=== PATIENT | female | born 1970 | race Caucasian/White ===

== ENCOUNTER 2018-07-29 19:46 | Inpatient (IN) ==
[2018-07-29] MEDS ORDERED: NS 1,000 ML IV ONE ×2 (20:08→21:09)
--- NOTE | 2018-07-29 20:23 | Diag Imaging Result Doc PS360 ---
EXAM: CHEST-1 VIEW 07/29/2018 HISTORY: sepsis screen TECHNIQUE: AP portable at 2014 COMMENT: There is platelike opacity in the left lower lobe and lingula. The heart size and pulmonary vascularity are within normal limits. There are no previous studies available for comparison. IMPRESSION: Atelectasis versus pneumonia in the left lower lobe and lingula. Electronically signed by Rachid Faye 07/29/2018 8:21 PM
[2018-07-29] MEDS ORDERED: CIPRO 400 MG/D5W 400 MG/200 ML IVPB IV ONE (20:28)
[2018-07-29 20:41] LABS: BASO# 0.05 X1000 (0.0-0.2); BASO% 0.6 % (0.0-0.8); EOS# 0.24 X1000 (0.0-0.7); EOS% 2.7 % (0.0-10.0); HEMATOCRIT 40.3 % (37.0-47.0); HEMOGLOBIN 13.2 g/dL (12.0-16.0); IMM GRAN# 0.05 X1000 (0.0-0.04); IMM GRAN% 0.6 % (0.0-0.5); LYMPH# 2.51 X1000 (1.2-3.4); LYMPH% 27.8 % (20.5-51.1); MCH 30.7 PG (27-31); MCHC 32.8 g/dL (33-37); MCV 93.7 FL (81-99); MONO# 0.96 X1000 (0.11-0.59); MONO% 10.6 % (1.7-9.3); MPV 10.8 FL (7.4-10.4); NEUT# 5.23 X1000 (1.4-6.5); NEUT% 57.7 % (42.2-75.2); PLT 207 X1000 (130-400); RDW 13.3 % (11.5-14.5); WBC 9.04 X1000 (4.8-10.8)
[2018-07-29 20:51] LABS: INR 0.81; PROTIME 11.8 Seconds (11.0-16.0)
[2018-07-29 20:52] LABS: PTT 27.7 Seconds (22.3-41.8)
[2018-07-29 21:09] LABS: AGAP 10; ALB/GLOB RATIO 1.3; ALBUMIN 4.1 g/dL (3.5-5.0); ALKALINE PHOSPHATASE 74 U/L (32-104); BUN 7 mg/dL (8-22); CALCIUM 8.7 mg/dL (8.8-10.2); CHLORIDE 97 mmol/L (98-107); COSMO 278; CREATININE 0.8 mg/dL (0.5-0.9); ESTIMATED GFR > 60; GLUCOSE 284 mg/dL (70-104); GOT 30 U/L (10-30); GPT 35 U/L (10-36); POTASSIUM 3.8 mmol/L (3.5-5.1); SODIUM 135 mmol/L (136-145); TCO2 28 mmol/L (25-35); TOTAL BILIRUBIN 0.24 mg/dL (0.20-1.00); TOTAL PROTEIN 7.3 g/dL (6.3-8.3)
[2018-07-29 21:18] LABS: URINE SOURCE CLEAN CATCH
[2018-07-29 21:36] LABS: CK PROFILE 788 U/L (24-173)
[2018-07-29] MEDS ORDERED: TORADOL IV ONE (21:46)
[2018-07-29 21:58] LABS: BILIRUBIN URINE NEGATIVE (NEGATIVE); BLOOD URINE NEGATIVE (NEGATIVE); COLOR YELLOW; GLUCOSE URINE >1000 mg/dL (NEGATIVE); KETONE URINE NEGATIVE (NEGATIVE); LEUKOCYTES URINE TRACE (NEGATIVE); NITRITE URINE NEGATIVE (NEGATIVE); PROTEIN URINE NEGATIVE (NEGATIVE); SP GRAVITY URINE 1.013; TURBIDITY URINE CLEAR (CLEAR); UR EPITHELIAL CELLS <10 /HPF (<10); URINE BACTERIA NEGATIVE /HPF; URINE RBC <10 /HPF (<10); URINE WBC <10 /HPF (<10); UROBILINOGEN URINE NORMAL (NORMAL)
[2018-07-29 22:01] LABS: CK INDEX 1.3 (0.0-2.5); CK-MB 10.21 ng/mL (0.0-5.0)
[2018-07-29] MEDS ORDERED: OFIRMEV 1000 MG/ISOTONIC SOLN 1,000 MG/100 ML BOTTLE IV ONE (22:05)
[2018-07-29] MEDS ORDERED: OFIRMEV 1000 MG/ISOTONIC SOLN 1,000 MG/100 ML BOTTLE ONE (22:10)
[2018-07-29] MEDS ORDERED: DUONEB (A & A) INH PRN (22:41)
[2018-07-29] MEDS ORDERED: NORCO-5 PO PRN (23:10)
--- NOTE | 2018-07-29 23:31 | PROVIDER DOCUMENTATION ---
This chart was entered by Gill Pierce Scribe, acting as scribe for Florina Goddard MD. HPI-Abdominal Pain/GI Problem - General Chief Complaint: Possible Sepsis-D Stated Complaint: STOMACH SWOLLEN/PAIN Time Seen by Provider: 07/29/18 20:04 Allergies/Adverse Reactions: Patient Allergies Allergy/AdvReac Type Severity Reaction Status Date / Time codeine Allergy Unknown Verified 07/29/18 21:05 niacin Allergy Unknown Verified 07/29/18 21:05 Sulfa (Sulfonamide Allergy Unknown Verified 07/29/18 21:05 Antibiotics) tramadol [From Ultram] Allergy Unknown Verified 07/29/18 21:05 Home Medications: Home Medication List Medication Instructions Recorded Confirmed Last Taken Type Gabapentin 1 cap PO TID 07/29/18 07/29/18 Unknown History Gabapentin 2 cap PO BID 07/29/18 07/29/18 Unknown History Metaxalone 1 tab PO TID 07/29/18 07/29/18 Unknown History Metoprolol Tartrate 1 tab PO BID 07/29/18 07/29/18 Unknown History Quetiapine [Seroquel] 50 mg PO QHS 07/29/18 07/29/18 Unknown History Trazodone HCl 300 mg PO QHS 07/29/18 07/29/18 Unknown History Venlafaxine HCl [Effexor Xr] 150 mg PO DAILY 07/29/18 07/29/18 Unknown History - History of Present Illness-ABD Nature of Presenting Problems: Pt is 48/F presenting to ED w/ diarrhea for the last 3 months, sts that it has gotten worse in the past 2 weeks w/ occasional black stool and bloody diarrhea x2. She sts that she has had some cramping as well w/ pain at 8/10. Inability to control her bowels. Some nausea but no vomiting. Has been febrile. Abdominal Pain Onset Location: reports: RLQ, LLQ Pain Radiation: reports: no radiation Quality of Pain: reports: cramping Severity in ED: reports: moderate Onset/Duration: reports: other (2 weeks) Timing: reports: still present Activities at Onset: reports: none Exposure to sick contacts?: No Modifying Factors: improves with: nothing Associated Symptoms: reports: diarrhea, fever/chills, nausea. denies: shortness of breath, vomiting Dark Stools Present?: reports: black, bright red blood Rectal Pain: reports: none Review of Systems - Adult - REVIEW OF SYSTEMS - ADULT Constitutional: reports: no symptoms reported. denies: chills, fever Eyes: reports: no symptoms reported Ears, Nose, Mouth & Throat: reports: no symptoms reported Cardiovascular: reports: no symptoms reported. denies: chest pain Respiratory: reports: no symptoms reported Gastrointestinal: reports: abdominal pain, diarrhea, nausea. denies: vomiting Genitourinary: reports: no symptoms reported Musculoskeletal: reports: no symptoms reported Integumentary: reports: no symptoms reported Neurological: reports: no symptoms reported. denies: dizziness/vertigo, headache/migraines Past History - Adult - PAST MEDICAL HISTORY-ADULT Review of Records: reports: Old Records Reviewed, Nursing Assessment Review, Medications Reviewed, Social history reviewed & non-contributory. Major Childhood Illnesses: reports: denies history - SOCIAL HISTORY Smoking: cigarettes Substance Use: none presently/history of abuse Alcohol Use Frequency: never Physical Exam-General - PHYSICAL EXAM-ADULT Initial Vital Signs Reviewed: Yes - CONSTITUTIONAL General Appearance: appears well, alert, mild distress - EYES Eyes: PERRL/EOMI, pink conjunctivae - HEAD, EARS, NOSE, MOUTH & THROAT HENMT: normocephalic/atraumatic, moist mucous membranes, normal ENT inspection, TMs normal, pharynx normal - NECK Neck: non-tender, full range of motion, supple, normal inspection - RESPIRATORY Respiratory: chest non-tender, lungs clear, normal breath sounds - CARDIOVASCULAR Cardiovascular: tachycardia (121) - GASTROINTESTINAL (ABDOMEN) Abdominal Exam: normal bowel sounds, soft, tenderness (LLQ and RLQ tenderness upon palpation). negative: guarding, rigid, rebound - MUSCULOSKELETAL Back Exam: normal inspection, no CVA tenderness, no vertebral tenderness Extremity: normal range of motion, non-tender, normal gait, normal inspection - SKIN Integumentary: normal color, warm/dry - NEUROLOGIC Neurologic: grossly normal - PSYCHIATRIC Psych/Mental Status: normal thought content, normal thought process, oriented x 3 Progress - PLAN OF CARE/RESULTS Progress/Plan/Lab Results: Vital Signs - 8 hr 07/29/18 19:52 07/29/18 21:02 07/29/18 21:09 Temperature 100.9 F H Pulse Rate 142 H Respiratory Rate 18 Blood Pressure 154/77 148/84 146/84 O2 Sat by Pulse Oximetry 97 07/29/18 21:55 Temperature 100.2 F H Pulse Rate 101 H Respiratory Rate 20 Blood Pressure 122/91 O2 Sat by Pulse Oximetry 97 07/29/18 20:30 Stool Occult Blood (KALANI) - Final Stool Laboratory Results - last 24 hr 07/29/18 07/29/18 07/29/18 20:25 20:25 20:25 WBC 9.04 RBC 4.30 Hgb 13.2 Hct 40.3 MCV 93.7 MCH 30.7 MCHC 32.8 L RDW Std Deviation 13.3 Plt Count 207 MPV 10.8 H Immature Gran % (Auto) 0.6 H Neut % (Auto) 57.7 Lymph % (Auto) 27.8 Cooke % (Auto) 10.6 H Eos % (Auto) 2.7 Baso % (Auto) 0.6 Immature Gran # (Auto) 0.05 H Neut # (Auto) 5.23 Lymph # (Auto) 2.51 Cooke # (Auto) 0.96 H Eos # (Auto) 0.24 Baso # (Auto) 0.05 PT 11.8 INR 0.81 PTT (Actin FS) 27.7 Sodium 135 L Potassium 3.8 Chloride 97 L Carbon Dioxide 28 Anion Gap 10 BUN 7 L Creatinine 0.8 Estimated GFR/1.73 m2 > 60 BUN/Creatinine Ratio 9 Glucose 284 H Calculated Osmolality 278 Calcium 8.7 L Total Bilirubin 0.24 AST 30 ALT 35 Alkaline Phosphatase 74 Creatine Kinase 788 H Creatine Kinase Index 1.3 CK-MB (CK-2) 10.21 H Troponin T Total Protein 7.3 Albumin 4.1 Globulin 3.2 Albumin/Globulin Ratio 1.3 Plasma Lactate Urine Source Urine Color Urine Turbidity Urine pH Ur Specific [place] Urine Protein Ur Glucose (Stick) Ur Ketones (Stick) Urine Blood Urine Nitrite Urine Bilirubin Urobilinogen Dipstick Urine Leukocytes Urine WBC (Auto) Urine RBC (Auto) U Epithel Cells (Auto) Urine Bacteria (Auto) Blood Type Antibody Screen 07/29/18 07/29/18 07/29/18 20:25 20:25 20:25 WBC RBC Hgb Hct MCV MCH MCHC RDW Std Deviation Plt Count MPV Immature Gran % (Auto) Neut % (Auto) Lymph % (Auto) [place] % (Auto) Eos % (Auto) Baso % (Auto) Immature Gran # (Auto) Neut # (Auto) Lymph # (Auto) [place] # (Auto) Eos # (Auto) Baso # (Auto) PT INR PTT (Actin FS) Sodium Potassium Chloride Carbon Dioxide Anion Gap BUN Creatinine Estimated GFR/1.73 m2 BUN/Creatinine Ratio Glucose Calculated Osmolality Calcium Total Bilirubin AST ALT Alkaline Phosphatase Creatine Kinase Creatine Kinase Index CK-MB (CK-2) Troponin T 0.037 Total Protein Albumin Globulin Albumin/Globulin Ratio Plasma Lactate 1.7 Urine Source Urine Color Urine Turbidity Urine pH Ur Specific [place] Urine Protein Ur Glucose (Stick) Ur Ketones (Stick) Urine Blood Urine Nitrite Urine Bilirubin Urobilinogen Dipstick Urine Leukocytes Urine WBC (Auto) Urine RBC (Auto) U Epithel Cells (Auto) Urine Bacteria (Auto) Blood Type A POSITIVE Antibody Screen NEGATIVE 07/29/18 20:30 WBC RBC Hgb Hct MCV MCH MCHC RDW Std Deviation Plt Count MPV Immature Gran % (Auto) Neut % (Auto) Lymph % (Auto) [place] % (Auto) Eos % (Auto) Baso % (Auto) Immature Gran # (Auto) Neut # (Auto) Lymph # (Auto) [place] # (Auto) Eos # (Auto) Baso # (Auto) PT INR PTT (Actin FS) Sodium Potassium Chloride Carbon Dioxide Anion Gap BUN Creatinine Estimated GFR/1.73 m2 BUN/Creatinine Ratio Glucose Calculated Osmolality Calcium Total Bilirubin AST ALT Alkaline Phosphatase Creatine Kinase Creatine Kinase Index CK-MB (CK-2) Troponin T Total Protein Albumin Globulin Albumin/Globulin Ratio Plasma Lactate Urine Source CLEAN CATCH Urine Color YELLOW Urine Turbidity CLEAR Urine pH 7.0 Ur Specific [place] 1.013 Urine Protein NEGATIVE Ur Glucose (Stick) >1000 A Ur Ketones (Stick) NEGATIVE Urine Blood NEGATIVE Urine Nitrite NEGATIVE Urine Bilirubin NEGATIVE Urobilinogen Dipstick NORMAL Urine Leukocytes TRACE A Urine WBC (Auto) <10 Urine RBC (Auto) <10 U Epithel Cells (Auto) <10 Urine Bacteria (Auto) NEGATIVE Blood Type Antibody Screen Orders Category Date Time Status Cardiac Monitoring DIRECTED Care 07/29/18 19:58 Active IV Insertion ORDERED Care 07/29/18 19:58 Completed Notify MD of + Sepsis Screen NOW Care 07/29/18 19:58 Active Notify Physician As Ordered Care 07/29/18 19:58 Active CHEST-1 VIEW [RAD] Stat Exams 07/29/18 19:58 Completed BLOOD CULTURE [BLDCUL] Stat Lab 07/29/18 20:55 Results CBC WITH DIFF [HEME] Stat Lab 07/29/18 20:25 Completed CK PROFILE [SP CHEM] Stat Lab 07/29/18 20:25 Completed COMPREHENSIVE METABOLIC PANEL [CHEM] Stat Lab 07/29/18 20:25 Completed LACTATE, PLASMA [CHEM] Lab 07/29/18 20:25 Completed PROTIME WITH INR [COAG] Stat Lab 07/29/18 20:25 Completed PTT [COAG] Stat Lab 07/29/18 20:25 Completed Stool [OCCULT BLOOD SCREENING] [STOOL] Stat Lab 07/29/18 20:30 Completed TROPONIN T Stat Lab 07/29/18 20:25 Completed TYPE & SCREEN [BBK] Stat Lab 07/29/18 20:25 Completed URINALYSIS W/POSS RFLX CULT [URINALYSIS] Stat Lab 07/29/18 20:30 Completed URINE CULTURE [RM] Routine Lab 07/29/18 22:02 Received 0.9% Sodium Chloride Inj [Ns] 1,000 ml Med 07/29/18 20:08 Discontinued IV 999 mls/hr 0.9% Sodium Chloride Inj [Ns] 1,000 ml Med 07/29/18 21:09 Active IV 999 mls/hr Ciprofloxacin 400 mg/D5w [Cipro 400 mg/D5w] Med 07/29/18 20:28 Discontinued 400 mg in 200 ml IV NOW Ketorolac [Toradol] Med 07/29/18 21:46 Discontinued 30 mg IV NOW ONE Oxygen Device Stat Oth 07/29/18 19:58 Active EKG [EKG] Stat Ther 07/29/18 20:09 Ordered Bloody diarrhea, black stool, abd pain meet criteria for sepsis. will admit for further management. sepsis protocol initiated and nurse informed. Result Diagrams: 07/29/18 20:25 07/29/18 20:25 - CONSULTS/PCP/HOSPITALIST Notification #1 *Consult/PCP/Hospitalist*: Dr. Boone Time Discussed: 22:33 Consult Disposition: Admit (Hx, PE and patient care disccused, accpeted.) Departure - Departure Date of Disposition Decision: 07/29/18 Time of Disposition Decision: 22:33 DIAGNOSIS: Bloody diarrhea Sepsis Qualifiers: Sepsis type: sepsis due to unspecified organism Qualified Code(s): A41.9 - Sepsis, unspecified organism Abdominal pain Qualifiers: Abdominal location: generalized Qualified Code(s): R10.84 - Generalized abdominal pain Disposition: ADMITTED INPATIENT 09 Certified Medical Emergency: Emergent Condition: Stable - Critical Care Note This patient required my direct & personal management of CC.: No Attestation - Physician/ SAVANAH Attestation Patient care was provided by Advanced Practice Provider:: No The physician spent face to face time with patient:: Yes Advanced Practice Provider documentation review:: Supervising physician onsite and consulted in the evaluation and care of this patient. The physician did have a face to face encounter with the patient. This chart was documented by the indicated scribe, (Gill Pierce, Screlder) and accurately reflects the services I performed and decisions made by me, Florina Winslow MD, as attested by the provider's signature.
--- NOTE | 2018-07-29 23:50 | HISTORY AND PHYSICAL ---
CHIEF COMPLAINT: Abdominal pain. HISTORY OF PRESENT ILLNESS: The patient is a 48-year-old female who notes that she has been having symptoms for 3 or 4 months. She states the symptoms have continued to worsen. She states she has been having abdominal pain and swelling for the past couple of weeks. She has been having leg pain and swelling for the past 2 days. She states that for the past 2 weeks, she has been having black stools off and on. The pain occasionally is intense. The patient has some nausea. Denies any true vomiting. Denies any hematemesis. Notes that she has had dark black stools as well as bright red stools. Of note, she states that her TAPE SEWING MACHINE OPERATOR some time ago had run blood tests and told her that she had colon inflammation and was told to have a colonoscopy, but she declined due to cost. She states she has been having subjective fevers, has not checked her temperature at home. Denies any chest pains, palpitations. REVIEW OF SYSTEMS: Denies chest pain, palpitations. Denies dyspnea on exertion, PND, or orthopnea. Denies headaches, blurred vision, change in vision. Denies any focalized numbness, tingling, or weakness in her extremities. Denies any dysuria or urinary frequency. Denies any blood in her stool prior to a couple of weeks ago. Denies any blood in her urine. Denies free bleeding or bruising. ALLERGIES: Codeine, mycin, sulfa, and tramadol. PAST MEDICAL HISTORY: Significant for diabetes. She notes that she had been on Actos in the past but has not taken this in quite some time, but also has not checked her blood sugars at home. FAMILY HISTORY: Noncontributory to her current situation. SOCIAL HISTORY: She does smoke. Does not drink. PHYSICAL EXAMINATION: VITAL SIGNS: Temperature 100.9 degrees, pulse 142, respiratory 18, BP 154/77. GENERAL: The patient is awake, alert. She is currently in no distress. HEENT: Normocephalic, atraumatic. HARESH. NECK: Supple. CARDIOVASCULAR: Tachycardia. No murmurs. CHEST: Equal breath sounds bilaterally. No wheezing. No crackles. ABDOMEN: Soft. Diffusely tender. Appears slightly distended. Positive bowel sounds. EXTREMITIES: Moves all extremities. She has 2+ bilateral lower extremity edema. NEUROLOGIC: New no focal changes. LABORATORIES: Sodium 135. CK 78, CK-MB 10.2. Troponin is pending. Glucose 284. WBC is 0. ASSESSMENT: 1. Lower gastrointestinal bleed of undetermined origin or significance. Has been chronic for the past couple of months per the patient, and her hemoglobin and hematocrit are currently stable. 2. Febrile illness. 3. Supraventricular tachycardia. 4. Questionable pneumonia on chest x-ray. 5. Lower extremity edema. 6. Diabetes, currently not on medications at home. PLAN: We will admit the patient to the hospital. IV Levaquin and Flagyl to cover her GI source. We will place her on sliding scale insulin. Check an A1c. Recheck labs in the a.m. Consult GI as she will likely need to have endoscopy prior to discharge. Will follow. cc: José Luis Boone MD
[2018-07-30] MEDS: FLAGYL 500 MG/NS 500 MG/100 ML IVPB IV SCH ×4 (01:52→20:52)
[2018-07-30] MEDS: TYLENOL PO PRN ×3 (01:53→21:07)
[2018-07-30] MEDS: ZOFRAN IV PRN ×3 (01:59→20:57)
[2018-07-30] MEDS: PROTONIX IV SCH ×3 (01:59→20:54)
[2018-07-30 06:23] LABS: HEMATOCRIT 35.9 % (37.0-47.0); HEMOGLOBIN 11.7 g/dL (12.0-16.0); MCH 30.8 PG (27-31); MCHC 32.6 g/dL (33-37); MCV 94.5 FL (81-99); MPV 10.3 FL (7.4-10.4); RBC 3.8 XMIL (4.2-5.4); RDW 13.3 % (11.5-14.5); WBC 7.66 X1000 (4.8-10.8)
[2018-07-30 06:46] LABS: HEMOGLOBIN A1C 6.6 % (4.8-6.0)
[2018-07-30] MEDS: MORPHINE IV PRN ×5 (06:59→20:57)
[2018-07-30 07:11] LABS: AGAP 9; ALB/GLOB RATIO 1.6; ALBUMIN 3.6 g/dL (3.5-5.0); ALKALINE PHOSPHATASE 63 U/L (32-104); BUN 6 mg/dL (8-22); CALCIUM 9.1 mg/dL (8.8-10.2); CHLORIDE 107 mmol/L (98-107); COSMO 282; CREATININE 0.7 mg/dL (0.5-0.9); ESTIMATED GFR > 60; GLUCOSE 147 mg/dL (70-104); GOT 23 U/L (10-30); GPT 28 U/L (10-36); POTASSIUM 4.2 mmol/L (3.5-5.1); SODIUM 141 mmol/L (136-145); TCO2 25 mmol/L (25-35); TOTAL BILIRUBIN 0.23 mg/dL (0.20-1.00); TOTAL PROTEIN 5.9 g/dL (6.3-8.3)
[2018-07-30 07:32] LABS: CK PROFILE 451 U/L (24-173)
[2018-07-30 08:36] LABS: CK-MB 4.62 ng/mL (0.0-5.0)
[2018-07-30] MEDS: HUMALOG SUBQ SCH ×4 (09:01→20:56)
--- NOTE | 2018-07-30 09:18 | PROGRESS NOTE ---
DATE: 07/30/2018 SUBJECTIVE: The patient notes her abdominal pain is slightly improved. States she did have small bowel movement, did not notice any blood, except for on the tissue. PHYSICAL EXAMINATION: Vital Signs: Temp 98, pulse 91, respiratory rate 20, BP 103/54. General: The patient is awake, pleasant to talk with. She is in no current distress. HEENT: Normocephalic. Neck: Supple. Cardiovascular: Regular rate. No murmurs. Chest: Clear, nonlabored. Abdomen: Soft diffusely, but minimally tender. Positive bowel sounds. Nondistended. No guarding. No rebound. Extremities: Moves all extremities. No edema. Neurologic: No changes. ASSESSMENT: 1. Lower gastrointestinal bleed of undetermined significance. 2. Diabetes with A1c at 6.6, currently diet controlled. 3. Febrile illness. She has continued to have a low-grade fever of 100 to 100.9. We have her on Levaquin and Flagyl, although it is possible that she has pneumonia instead of atelectasis. She currently is having no cough, no congestion. 4. Supraventricular tachycardia. 5. Lower extremity edema. PLAN: Will continue the patient in the hospital. Will ask Gastroenterology to see in evaluation as she states she has had diarrhea for a significant period of time at home. She also complains of melena. cc: José Luis Boone MD
[2018-07-30] MEDS: NS 1,000 ML IV SCH ×2 (09:41→19:45)
[2018-07-30] MEDS: SODIUM CHLORIDE 0.9% INJ SCH ×2 (09:45→20:54)
[2018-07-30] MEDS: LEVAQUIN 750 MG/D5W 750 MG/150 ML IVPB IV SCH (10:24)
[2018-07-30] MEDS ORDERED: GOLYTELY PO ONE (14:00)
--- NOTE | 2018-07-30 14:18 | GASTROENTEROLOGY CONSULTATION ---
DATE: 07/30/2018 CONSULTING PHYSICIAN: Dr. Boone, and he had consulted Dr. Tang. I am on-call for Dr. Tang this weekend. I saw the patient for Dr. Tang. HISTORY OF PRESENT ILLNESS: The patient is a 48-year-old white female with no major medical problem. She was recently transferred from [place]. She has moved to [place] now. She tells me that she has been having abdominal pain and abdominal swelling for some time. She was, in fact, scheduled to have a colonoscopy done, but could not make it for some [*] reason. Her last colonoscopy apparently was 5 or 6 years ago, and she thinks she may have had polyps then. She has recently had right shoulder surgery done and was doing fine and has gotten better, but she has noticed that she had some abdominal pain. She points to her left lower quadrant area and the lower abdomen. She felt as if her abdomen was swollen. She has had some loose stool, apparently has noticed some blood on the wipe or her undergarment as well. With these complaints, she came to the emergency room and was admitted for further evaluation and treatment. She does complain of some indigestion and heartburn, but denies dysphagia or odynophagia. Her appetite is good. She is eating well. She has not lost any weight. She denied any fever or chills. She does complain of occasional headache, for which she takes Tylenol, and takes ibuprofen occasionally. She denies dizziness or double vision, has not had any earache, ear discharge, ringing in the ear. Denies any chest pain or shortness of breath or palpitations. Has not any cough, sputum, or hemoptysis. Denies dysuria, polyuria, hematuria. PAST MEDICAL HISTORY: Significant for diabetes, and claims she has history of tachycardia, for which she takes beta-pino. PAST SURGICAL HISTORY: She has had cholecystectomy, total hysterectomy, and right shoulder surgery. MEDICATIONS: Prior to hospitalization, she has been on gabapentin, metaxalone, metoprolol tartrate, Seroquel, trazodone, and Effexor. ALLERGIES: Claims to be allergic to codeine, niacin, sulfa, and tramadol. SOCIAL HISTORY: She is recently . Has moved from [place] to [place]. Smokes a pack of cigarettes per day. Does not drink. Does not use illicit drugs. FAMILY HISTORY: Noncontributory. REVIEW OF SYSTEMS: As per HPI as above. PHYSICAL EXAMINATION: General: A very pleasant, white female, lying in bed. She is conscious, alert, appears to be in no distress. Vital Signs: Temperature is 98 degrees Fahrenheit, pulse is 91 per minute, breathing 20, blood pressure is 103/54. Head: Atraumatic, normocephalic. Eyes: Conjunctivae normal. Sclerae anicteric. Nares: Patent. No discharge. Mouth: She has got mild glossitis, otherwise poor dentition. Neck: Supple. No lymphadenopathy or thyromegaly. Chest: Bilaterally symmetrical, is moving respirations. Breath sounds audible bilaterally. No rhonchi or crepitations could be heard. Heart: S1, S2 audible. No murmur could be appreciated. Abdomen: Full, soft, mildly tender in the lower abdomen, specifically in the left lower quadrant area. No rebound tenderness or guarding noted. Bowel sounds are audible. Extremities: No pedal edema, cyanosis, or clubbing was noted. DIRECTOR OF HOME HEALTH SERVICES: Grossly intact. No sensory or motor deficit. LABORATORY DATA: Reviewed, which showed WBC 7.66, hemoglobin 11.7, hematocrit 35.1, MCV is 94.5, platelets are 190. PT 11.8, INR 0.81, PTT 27.7. Sodium 141, potassium 4.2, chloride 107, bicarb is 25, BUN is 7, creatinine 0.7, glucose 147. AST 23, ALT 28, alkaline phosphatase 63, total bilirubin was 0.23. Urinalysis was negative. IMPRESSION: This is a 48-year-old white female, who was admitted to the hospital with vague abdominal pain and diarrhea. Apparently has had some dark stool as well as some bright red blood per rectum, especially on the wipe and her undergarment. Her hemoglobin and hematocrit were normal on admission. It did drop after dilution and intravenous fluids. Considering her history and considering her last colonoscopy a few years ago, she does need colonoscopy, and depending on the findings, further plans will be made. As far as the timing of her colonoscopy, that can be scheduled as soon as possible. We can schedule for tomorrow. Depending on the findings, further plans will be made. In the meantime, continue intravenous fluid, continue to recheck hemoglobin and hematocrit, transfuse if necessary, and her symptomatic treatment. cc: Ted Carter MD
[2018-07-31] MEDS: MORPHINE IV PRN ×4 (00:27→11:22)
[2018-07-31] MEDS: ZOFRAN IV PRN ×2 (00:58→11:22)
[2018-07-31] MEDS: FLAGYL 500 MG/NS 500 MG/100 ML IVPB IV SCH ×2 (02:39→11:16)
[2018-07-31] MEDS: NS 1,000 ML IV SCH ×2 (02:39→07:32)
[2018-07-31] MEDS: TYLENOL PO PRN (05:18)
[2018-07-31] MEDS: HUMALOG SUBQ SCH ×2 (06:32→12:49)
[2018-07-31] MEDS ORDERED: XYLOCAINE-MPF 2% ONE (10:11)
[2018-07-31] MEDS ORDERED: DIPRIVAN 1% ONE ×2 (10:11→10:27)
[2018-07-31] MEDS ORDERED: VERSED ONE (10:13)
[2018-07-31] MEDS: SODIUM CHLORIDE 0.9% INJ SCH (11:17)
[2018-07-31] MEDS: LEVAQUIN 750 MG/D5W 750 MG/150 ML IVPB IV SCH (11:17)
[2018-07-31] MEDS: PROTONIX IV SCH (11:17)
[2018-07-31] MEDS ORDERED: MIRALAX PO SCH (11:30)
[2018-07-31] MEDS ORDERED: ANUSOL-HC CREAM PR SCH (11:30)
[2018-07-31 11:40] VITALS: BP 125/68
--- NOTE | 2018-07-31 12:01 | OPERATIVE NOTE ---
PROCEDURE DATE: 07/31/2018 ATTENDING PHYSICIAN: Dr. Boone. TITLE OF PROCEDURE: Colonoscopy. PREOPERATIVE DIAGNOSIS: Rectal bleeding. POSTOPERATIVE DIAGNOSES: 1. Internal hemorrhoids grade 2. 2. Stool throughout the colon, more so in the cecum, ascending colon, descending, and sigmoid colon. Lavage was performed. The visualization was poor. 3. No evidence of any colitis noted. ESTIMATED BLOOD LOSS: None. COMPLICATIONS: None. ANESTHESIA: Monitored anesthesia care per the anesthesiologist. SPECIMENS: None. DESCRIPTION OF PROCEDURE: After informed consent, the patient was explained the risks, benefits, indications, and alternatives to the procedure, the patient was prepared for a colonoscopy. The risks of the procedure, including infection, bleeding, pain, trauma to the surrounding structures, perforation, and , were explained to the patient, among others. She acknowledged understanding and agreed to proceed with the procedure. The patient was brought to the OR. She was turned in a left lateral position. Rectal exam was performed which revealed reduced anal tone. No masses were felt. No blood on the examining finger. After adequate monitored anesthesia care, the colonoscope was introduced into the anal verge and traversed all the way to the cecum. Cecum was identified by landmarks like IC valve. The bowel prep was poor. There was a lot of retained stool in the cecum, ascending colon, descending, sigmoid colon, and rectum. This was lavaged. Visualization was poor. We did not see any evidence of blood in the stools. We only some brown stool throughout the colon. We did not see any black stools either. We did not visualize any evidence of any colitis. Lesions less than 1 cm could have been missed because of poor prep. The lavage was performed. The air was aspirated and scope was withdrawn. Retroflexion in the rectum revealed internal hemorrhoids grade 2. The air was aspirated and the scope was withdrawn. The patient tolerated the procedure well and is currently monitored in the OR in stable condition. RECOMMENDATIONS: 1. The patient will be on MiraLAX 17 g p.o. b.i.d. 2. We will start the patient on Proctosol-HC 2.5% cream per rectum b.i.d. 3. The patient will start on a high-fiber diet. 4. The patient was counseled to quit smoking. 5. The patient will follow up in the clinic 2 weeks after discharge. At that time, we will plan for repeat colonoscopy with a two day prep. 6. We will need to reduce the narcotics to as low as possible. 7. Further recommendations pending the hospital course. Discussed the above with patient on waking up and all questions were answered. Please call us with any further questions. Thank you for allowing us to participate in the care of this patient. cc: MD José Luis Garrison MD [email or web address]
--- NOTE | 2018-07-31 18:25 | DISCHARGE SUMMARY ---
ADMISSION DATE: 07/29/2018 DISCHARGE DATE: 07/31/2018 ADMISSION DIAGNOSES: 1. Lower gastrointestinal bleed. 2. Febrile illness. 3. Supraventricular tachycardia. 4. Questionable pneumonia. 5. Lower extremity edema. 6. Diet-controlled diabetes mellitus. DISCHARGE DIAGNOSES: 1. Lower gastrointestinal bleed. 2. Febrile illness. 3. Supraventricular tachycardia. 4. Questionable pneumonia. 5. Lower extremity edema. 6. Diet-controlled diabetes mellitus. CONSULTATIONS: Dr. Carter, Gastroenterology; Dr. Tang, Gastroenterology. DIAGNOSTIC PROCEDURES AND FINDINGS: Chest x-ray on 07/29/2018 shows atelectasis versus pneumonia in the left lower lobe and lingula. Colonoscopy on 07/31/2018: Internal hemorrhoids grade 2; stool throughout the colon, more so in the cecum and ascending colon, descending and sigmoid colon; lavage was performed. Visualization was poor. No evidence of colitis noted. HOSPITAL COURSE: Ms. Roberson is a 48-year-old female with history of SVT, diabetes mellitus which is diet controlled, who recently moved from [place]. She has been having abdominal pain for the past 3 to 4 months. Pain was described as in the left lower quadrant of her abdomen; she was also describing some bloating. She described loose stools and blood on the wipe of her undergarments. She came to the ER with those complaints and was admitted and given fluids after which time her hemoglobin did go down only mildly. We also treated her for questionable pneumonia. GI saw the patient and did endoscopy today at which time nothing acute was noted, although visualization was poor. She will follow up with Dr. Tang and overall she is stable for discharge home. DISCHARGE MEDICATIONS: 1. Metoprolol tartrate 50 mg b.i.d. 2. Seroquel 50 mg p.o. q.h.s. 3. Trazodone 300 mg p.o. q.h.s. 4. Effexor XR 150 mg q. 24h. 5. Neurontin 200 mg p.o. b.i.d. 6. Metaxalone 800 mg p.o. t.i.d. 7. Protonix 40 mg daily. 8. Ceftin ER 300 mg p.o. b.i.d. for 10 days. DISCHARGE DIET: Diabetic. DISCHARGE ACTIVITY: Resume activity as tolerated. DISPOSITION AND OTHER DISCHARGE INSTRUCTIONS: Patient is discharged home to self-care. She is to follow up with Dr. Tang as directed. Continue all home medications. Return to the Emergency Room or call 911 for any worsening complaints or concerns. All questions were answered. Discharge time greater than 35 minutes. Dictated by JENNA Vega for Manny Newton MD Addendum: Patient seen and examined by myself. Agree with JENNA note. It reflects my assessment and plan. Patient is being discharged to home in stable condition. cc: JENNA Vega MD Manish Arora, MD Khurshid Yousuf, MD MTDD
== END 2018-07-31 13:36 | disposition home or self-care (01) | DRG 377 ==
LOC: ED 19:46 → 4N 23:20 → SUATTDRO 23:20
PROVIDERS: ATTEND Internal Medicine
CPT/HCPCS: 71010; 71045; 80053; 81001; 82270; 82550; 82553; 82948; 83036; 83605; 83735; 83880; 84484; 85025; 85027; 85379; 85610; 85730; 86850; 86900; 86901; 87040; 87088; 93005; 94761; 96361; 96365; 96366; 96368; 99285; A9270; C9113; J0131; J0744; J1815; J1956; J2250; J2270; J2405; J7030; S0030; S0164; XXXXX